=== PATIENT | male | born 1965 | race Caucasian/White ===

== ENCOUNTER 2024-05-05 15:54 | Emergency (ER) | payer BC ==
[~2024-05-05] VITALS: Ht 170.2 cm; Wt 90.7 kg
[2024-05-05] MEDS ORDERED: CIALIS5 MG PO (16:16)
[2024-05-05] MEDS ORDERED: CEFTRIAXONE SODIUM 1,000 MG VIAL IV ONE (16:45)
[2024-05-05] MEDS ORDERED: KETOROLAC TROMETHAMINE 30 MG VIAL IV ONE ×2 (16:45→19:45)
[2024-05-05] MEDS ORDERED: TAMSULOSIN HCL 0.4 MG CAP PO ONE (16:45)
[2024-05-05] MEDS ORDERED: FAMOtidine 10 MG/ML (4ML VIAL) IV PUSH ONE (16:45)
[2024-05-05 17:33] LABS: HEMATOCRIT 45.8 % (39.0-48.0); HEMOGLOBIN 15.6 g/dL (13-16.00); MEAN CELL VOLUME 82.7 fL (80.0-100.00); MEAN CORPUSCULAR HEMOGLOBIN 28.2 pg (27.00-32.0); MEAN CORPUSCULAR HGB CONC 34.1 g/dl (32.0-36.0); PLATELET COUNT 201 K/uL (150-450); RED BLOOD COUNT 5.53 M/uL (4.00-6.00); RED CELL DISTRIBUTION WIDTH 13.9 % (11.5-14.5)
[2024-05-05] MEDS ORDERED: PEPCID AC20 MG PO (17:40)
[2024-05-05] MEDS ORDERED: ZOFRAN8 MG PO (17:40)
[2024-05-05] MEDS ORDERED: KETO10TA2 PO (17:40)
[2024-05-05] MEDS ORDERED: TAMS0.4C PO (17:40)
[2024-05-05] MEDS ORDERED: BACTRIM DS TAB1 EACH PO (17:40)
[2024-05-05 17:45] LABS: URINE APPEARANCE Clear; URINE BILIRRUBIN Negative (NEGATIVE); URINE BLOOD Small; URINE COLOR Yellow; URINE GLUCOSE Negative (NEGATIVE); URINE KETONE 15 (NEGATIVE); URINE LEUKOCYTE Negative; URINE NITRATE Negative; URINE PROTEIN Trace (NEGATIVE); URINE UROBILINOGEN 0.2 E.U./dl
[2024-05-05] MEDS ORDERED: 0.9 % SODIUM CHLORIDE 1,000 ML IV ONE (17:45)
[2024-05-05 17:46] LABS: URINE BACTERIA 40.3 uL (0.0-1933); URINE EPITHELIAL CELLS 3.4 uL (0.0-38.8); URINE WBC 5.2 uL (0.0-23.2)
[2024-05-05 18:07] LABS: INR 1.05; PARTIAL THROMBOPLASTIN TIME 27.5 SECONDS (22.0-34.0); PROTHROMBIN TIME 11.4 SECONDS (9.0-11.5)
[2024-05-05 18:11] LABS: ALBUMIN 4.1 gm/dL (3.4-5.0); BILIRUBIN TOTAL 0.46 mg/dL (0.3-1.2); CALCIUM 8.8 mg/dL (8.5-10.1); GFR 77.3; GLOBULINA 3.6 G/DL (2.4-3.5); POTASSIUM 3.87 mEq/L (3.5-5.1); TOTAL PROTEIN 7.7 gm/dL (6.4-8.2)
[2024-05-05 18:21] LABS: URINE CAST 0.73 uL (0.0-1.40)
== END 2024-05-05 22:18 | disposition home or self-care (01) ==
LOC: ER 15:55
PROVIDERS: General Practice
DX: R10.9 Unspecified abdominal pain (principal)